=== PATIENT | male | born 1965 | race Caucasian/White ===

== ENCOUNTER 2016-12-23 09:24 | Inpatient (IN) | payer OTHER ==
[~2016-12-23] VITALS: Ht 172.7 cm; Wt 47.7 kg
[2016-12-23] MEDS ORDERED: SODIUM CHLORIDE 0.9% 1,000ML IVBOLUS ONE ×4 (10:00→23:00)
[2016-12-23 10:27] LABS: ABG COLLECTION SITE RIGHT BRACHIAL
[2016-12-23] MEDS ORDERED: PLEASE ENTER HEIGHT AND WEIGHT MC SCH (10:30)
[2016-12-23 10:32] LABS: ASPARTATE AMINO TRANSFERASE 28 U/L (15-37); BLOOD UREA NITROGEN 19 mg/dL (7-18)
[2016-12-23] MEDS ORDERED: ONDANSETRON 2MG/ML, 2ML ONE (10:44)
[2016-12-23] MEDS ORDERED: CEFTRIAXONE PMX 1GM/50ML 50 ML ONE (10:45)
[2016-12-23 10:56] LABS: DIFF TOTAL CELLS COUNTED 100 CELL DIFF
[2016-12-23 10:57] LABS: VERIFY COUNTS? YES
[2016-12-23] MEDS ORDERED: AZITHROMYCIN 500 MG in SODIUM CHLORIDE 0.9% 250 ML IV ONE (11:00)
[2016-12-23] MEDS ORDERED: ONDANSETRON 2MG/ML, 2ML IVPush ONE (11:00)
[2016-12-23] MEDS ORDERED: PIPERACILLIN/TAZO 3.375 GM in SODIUM CHLORIDE 0.9% 50 ML IV ONE (11:00)
[2016-12-23] MEDS ORDERED: CEFTRIAXONE PMX 1GM/50ML 50 ML IV ONE (11:00)
[2016-12-23] MEDS ORDERED: OMNIPAQUE 350 MG/ML, 75ML BOTTLE ONE (11:10)
[2016-12-23] MEDS ORDERED: SODIUM BICARBONATE 4.2%, 5ML ONE (11:10)
[2016-12-23] MEDS ORDERED: LIDOCAINE 1%, 20ML ONE (11:10)
[2016-12-23 11:48] LABS: CYTOLOGY BODY FLUID RECD INTO PATHOLOGY; CYTOLOGY BODY FLUID SOURCE THORACIC FLUID
[2016-12-23] MEDS ORDERED: METOCLOPRAMIDE 5 MG/ML, 2ML ONE (11:58)
[2016-12-23] MEDS ORDERED: METOCLOPRAMIDE 5 MG/ML, 2ML IVPush PRN (12:00)
[2016-12-23] MEDS ORDERED: ONDANSETRON 2MG/ML, 2ML IVPush PRN (12:30)
[2016-12-23] MEDS ORDERED: AZITHROMYCIN 500 MG in SODIUM CHLORIDE 0.9% 250 ML IV SCH (12:30)
[2016-12-23] MEDS ORDERED: LABETALOL 5MG/ML, 20ML IVPush PRN (12:30)
[2016-12-23] MEDS ORDERED: CEFTRIAXONE PMX 1GM/50ML 50 ML IV SCH (12:30)
[2016-12-23] MEDS ORDERED: POLYETHYLENE GLYCOL 17 GM PACKET PO PRN (12:30)
[2016-12-23] MEDS ORDERED: NS + 20MEQ KCL 1,000 ML IV ONE (12:40)
[2016-12-23] MEDS ORDERED: ENOXAPARIN 40 MG/0.4 ML ONE (12:40)
[2016-12-23] MEDS: ENOXAPARIN 40 MG/0.4 ML SQ SCH (12:46)
[2016-12-23] MEDS: NS + 20MEQ KCL 1,000 ML IV SCH ×3 (12:47→23:14)
[2016-12-23] MEDS ORDERED: LORazepam 1MG TABLET ONE (13:00)
[2016-12-23] MEDS: LORazepam 1MG TABLET PO PRN (13:01)
[2016-12-23 13:47] VITALS: BP 108/75
[2016-12-23] MEDS ORDERED: METO-93 PO (14:11)
[2016-12-23] MEDS ORDERED: MIRT15TA4 PO (14:11)
[2016-12-23] MEDS ORDERED: ELVI1TAB PO (14:11)
[2016-12-23] MEDS ORDERED: ALBUTEROL/IPRATROPIUM 2.5MG/0.5MG, 3 ML NPPB SCH (18:00)
[2016-12-23] MEDS ORDERED: FENTANYL PF 100 MCG/2ML ONE (19:30)
[2016-12-23] MEDS ORDERED: FENTANYL PF 100 MCG/2ML IV ONE (20:00)
[2016-12-23] MEDS ORDERED: PHARMACY MAY ADJ FOR RENAL FX MC SCH (20:30)
[2016-12-23] MEDS ORDERED: LACTULOSE 20 GM/30 ML UDC NG PRN (20:30)
[2016-12-23] MEDS ORDERED: ENOXAPARIN 40 MG/0.4 ML SQ SCH (20:30)
[2016-12-23] MEDS ORDERED: LIDOCAINE-MPF 1%, 2ML ENDO PRN (20:30)
[2016-12-23] MEDS ORDERED: BISACODYL 10 MG SUPP PR PRN (20:30)
[2016-12-23] MEDS ORDERED: SENNOSIDES 8.8 MG/5 ML ORAL SOL NG PRN (20:30)
[2016-12-23] MEDS ORDERED: SENNA/DOCUSATE TABLET NG PRN (20:30)
[2016-12-23] MEDS: NOREPINEPHRINE 4 MG in SODIUM CHLORIDE 0.9% 246 ML IV PRN ×2 (20:42→23:15)
[2016-12-23] MEDS: FENTANYL PF 100 MCG/2ML IVPush PRN ×2 (20:55→23:26)
[2016-12-23 20:56] LABS: COLLATERAL CIRCULATION TESTING NORMAL
[2016-12-23 20:57] LABS: ABG COLLECTION SITE LEFT RADIAL
[2016-12-23] MEDS ORDERED: FAMOTIDINE 20 MG TABLET PO SCH (21:00)
[2016-12-23] MEDS ORDERED: FAMOTIDINE 20 MG/2 ML IVPush SCH (21:00)
[2016-12-23 21:09] LABS: IS PT STATUS REG ER OR PRE ER? NO
[2016-12-23] MEDS: ALBUTEROL/IPRATROPIUM 2.5MG/0.5MG, 3 ML INLINE SCH (21:40)
[2016-12-23] MEDS: FAMOTIDINE 20 MG/2 ML IV SCH (23:18)
[2016-12-23] MEDS: PROPOFOL 100 ML IV PRN (23:25)
[2016-12-24] MEDS: ALBUTEROL/IPRATROPIUM 2.5MG/0.5MG, 3 ML INLINE SCH ×2 (02:10→06:00)
[2016-12-24] MEDS: FENTANYL PF 100 MCG/2ML IVPush PRN (02:29)
[2016-12-24 02:56] LABS: IS PT STATUS REG ER OR PRE ER? NO
[2016-12-24 04:32] LABS: ABG COLLECTION SITE RIGHT RADIAL; COLLATERAL CIRCULATION TESTING NORMAL
[2016-12-24] MEDS: PROPOFOL 100 ML IV PRN (04:41)
[2016-12-24 05:09] LABS: BLOOD UREA NITROGEN 9 mg/dL (7-18)
[2016-12-24 05:13] LABS: ASPARTATE AMINO TRANSFERASE 14 U/L (15-37)
[2016-12-24] MEDS: NOREPINEPHRINE 4 MG in SODIUM CHLORIDE 0.9% 246 ML IV PRN (05:23)
[2016-12-24] MEDS ORDERED: POTASSIUM CHLORIDE 10% 40 MEQ/30 ML UDC PO ONE (07:30)
[2016-12-24] MEDS ORDERED: MIDAZOLAM 1 MG/ML, 5ML ONE (08:00)
[2016-12-24] MEDS ORDERED: PROPOFOL 10 MG/ML, 100ML IV ONE (08:00)
[2016-12-24] MEDS ORDERED: SUCCINYLCHOLINE 20 MG/ML, 10ML ONE (08:00)
[2016-12-24] MEDS: SENNA/DOCUSATE TABLET PO SCH (09:00)
[2016-12-24] MEDS: FAMOTIDINE 20 MG/2 ML IV SCH ×2 (09:55→21:12)
[2016-12-24] MEDS: CEFTRIAXONE PMX 1GM/50ML 50 ML IV SCH (09:55)
[2016-12-24] MEDS: [UNRECOGNIZED DRUG - OTHER] PO SCH ×2 (10:00→15:41)
[2016-12-24] MEDS: ALBUTEROL/IPRATROPIUM 2.5MG/0.5MG, 3 ML NPPB SCH ×3 (11:30→20:30)
[2016-12-24] MEDS ORDERED: ALBUTEROL/IPRATROPIUM 2.5MG/0.5MG, 3 ML NPPB PRN (11:30)
[2016-12-24] MEDS: AZITHROMYCIN 500 MG in SODIUM CHLORIDE 0.9% 250 ML IV SCH (11:38)
[2016-12-24] MEDS: MIRTAZAPINE 15 MG TABLET PO SCH (11:38)
[2016-12-24] MEDS: LORazepam 1MG TABLET PO PRN (12:29)
[2016-12-24] MEDS: ACETAMINOPHEN 325 MG TABLET PO PRN ×2 (12:30→23:46)
[2016-12-24] MEDS: ENOXAPARIN 40 MG/0.4 ML SQ SCH (12:33)
[2016-12-25] MEDS: NS + 20MEQ KCL 1,000 ML IV SCH ×2 (01:32→12:46)
[2016-12-25 04:29] LABS: ABG COLLECTION SITE LEFT RADIAL; COLLATERAL CIRCULATION TESTING NORMAL
[2016-12-25 05:10] LABS: BLOOD UREA NITROGEN 3 mg/dL (7-18)
[2016-12-25] MEDS: [UNRECOGNIZED DRUG - OTHER] PO SCH (07:30)
[2016-12-25] MEDS: ALBUTEROL/IPRATROPIUM 2.5MG/0.5MG, 3 ML NPPB SCH ×4 (07:55→21:41)
[2016-12-25] MEDS ORDERED: POTASSIUM CHLORIDE 20 MEQ TAB.ER.PRT PO ONE (08:30)
[2016-12-25] MEDS: SENNA/DOCUSATE TABLET PO SCH (08:50)
[2016-12-25] MEDS: FAMOTIDINE 20 MG/2 ML IV SCH ×2 (08:50→20:32)
[2016-12-25] MEDS: MIRTAZAPINE 15 MG TABLET PO SCH (08:50)
[2016-12-25] MEDS: LORazepam 1MG TABLET PO PRN ×2 (08:50→20:31)
[2016-12-25] MEDS: CEFTRIAXONE PMX 1GM/50ML 50 ML IV SCH (10:02)
[2016-12-25] MEDS: OXYcodone IR 5MG TABLET PO PRN ×3 (10:03→17:53)
[2016-12-25] MEDS: AZITHROMYCIN 500 MG in SODIUM CHLORIDE 0.9% 250 ML IV SCH (12:37)
[2016-12-25] MEDS: ENOXAPARIN 40 MG/0.4 ML SQ SCH (12:41)
[2016-12-25] MEDS: [UNRECOGNIZED DRUG - OTHER] HOMEMEDPO SCH (17:54)
[2016-12-25] MEDS: TEMAZEPAM 15 MG CAPSULE PO PRN (21:52)
[2016-12-25 22:06] LABS: ABSOLUTE CD 4 HELPER 295 /uL (359-1519); HEMATOCRIT 37.2 % (37.5-51.0); HEMOGLOBIN 13.1 g/dL (12.6-17.7); IMMATURE GRANULOCYTES 0 % (.); MCH 30.8 pg (26.6-33.0); MCHC 35.2 g/dL (31.5-35.7); MCV 87 fL (79-97); MONOCYTES 3 % (.); NEUTROPHILS 92 % (.); PLATELETS 289 x10E3/uL (150-379); RBC 4.26 x10E6/uL (4.14-5.80); RDW 13.2 % (12.3-15.4); WBC 12.6 x10E3/uL (3.4-10.8)
[2016-12-26 04:22] LABS: ABG COLLECTION SITE RIGHT RADIAL
[2016-12-26 04:23] LABS: COLLATERAL CIRCULATION TESTING NORMAL
[2016-12-26 05:57] LABS: BLOOD UREA NITROGEN 3 mg/dL (7-18)
[2016-12-26] MEDS: ALBUTEROL/IPRATROPIUM 2.5MG/0.5MG, 3 ML NPPB SCH ×4 (07:00→20:00)
[2016-12-26] MEDS: SENNA/DOCUSATE TABLET PO SCH (09:00)
[2016-12-26] MEDS: FAMOTIDINE 20 MG/2 ML IV SCH ×2 (09:00→21:00)
[2016-12-26] MEDS: POTASSIUM CHLORIDE 20 MEQ TAB.ER.PRT PO SCH ×2 (09:01→18:42)
[2016-12-26] MEDS: LORazepam 1MG TABLET PO PRN (09:03)
[2016-12-26] MEDS: MIRTAZAPINE 15 MG TABLET PO SCH (09:03)
[2016-12-26] MEDS: CEFTRIAXONE PMX 1GM/50ML 50 ML IV SCH (10:15)
[2016-12-26] MEDS: ENOXAPARIN 40 MG/0.4 ML SQ SCH (12:40)
[2016-12-26] MEDS: AZITHROMYCIN 500 MG in SODIUM CHLORIDE 0.9% 250 ML IV SCH (12:40)
[2016-12-26 13:06] LABS: LOG10 HIV-1 RNA 1.301 (.)
[2016-12-26] MEDS: [UNRECOGNIZED DRUG - OTHER] HOMEMEDPO SCH (16:30)
[2016-12-26] MEDS: TEMAZEPAM 15 MG CAPSULE PO PRN (21:00)
[2016-12-26] MEDS: OXYcodone IR 5MG TABLET PO PRN (21:01)
[2016-12-27 04:44] LABS: ABG COLLECTION SITE RIGHT RADIAL; COLLATERAL CIRCULATION TESTING NORMAL
[2016-12-27 06:54] LABS: ASPARTATE AMINO TRANSFERASE 21 U/L (15-37); BLOOD UREA NITROGEN 6 mg/dL (7-18)
[2016-12-27] MEDS: SENNA/DOCUSATE TABLET PO SCH (07:07)
[2016-12-27] MEDS: POTASSIUM CHLORIDE 20 MEQ TAB.ER.PRT PO SCH (07:07)
[2016-12-27] MEDS: MIRTAZAPINE 15 MG TABLET PO SCH (07:07)
[2016-12-27] MEDS: LORazepam 1MG TABLET PO PRN ×2 (07:07→14:31)
[2016-12-27] MEDS: FAMOTIDINE 20 MG/2 ML IV SCH ×2 (07:07→19:43)
[2016-12-27] MEDS: ALBUTEROL/IPRATROPIUM 2.5MG/0.5MG, 3 ML NPPB SCH ×4 (08:00→20:11)
[2016-12-27] MEDS: OXYcodone IR 5MG TABLET PO PRN ×2 (08:18→19:43)
[2016-12-27] MEDS: CEFTRIAXONE PMX 1GM/50ML 50 ML IV SCH (11:03)
[2016-12-27] MEDS: AZITHROMYCIN 500 MG in SODIUM CHLORIDE 0.9% 250 ML IV SCH (11:57)
[2016-12-27] MEDS: ENOXAPARIN 40 MG/0.4 ML SQ SCH (12:42)
[2016-12-27 13:05] VITALS: BP 109/75
[2016-12-27] MEDS: [UNRECOGNIZED DRUG - OTHER] HOMEMEDPO SCH (16:30)
[2016-12-27 18:59] VITALS: BP 116/71
[2016-12-27] MEDS: TEMAZEPAM 15 MG CAPSULE PO PRN (20:33)
[2016-12-28 02:38] VITALS: BP 102/74
[2016-12-28] MEDS: OXYcodone IR 5MG TABLET PO PRN ×4 (02:38→22:28)
[2016-12-28 06:25] LABS: ASPARTATE AMINO TRANSFERASE 14 U/L (15-37); BLOOD UREA NITROGEN 5 mg/dL (7-18)
[2016-12-28] MEDS: ALBUTEROL/IPRATROPIUM 2.5MG/0.5MG, 3 ML NPPB SCH ×5 (07:45→20:44)
[2016-12-28] MEDS: LORazepam 1MG TABLET PO PRN ×2 (08:58→19:36)
[2016-12-28] MEDS: FAMOTIDINE 20 MG/2 ML IV SCH (08:58)
[2016-12-28] MEDS: MIRTAZAPINE 15 MG TABLET PO SCH (08:58)
[2016-12-28] MEDS: SENNA/DOCUSATE TABLET PO SCH (08:58)
[2016-12-28 09:44] VITALS: BP 119/76
[2016-12-28] MEDS: CEFTRIAXONE PMX 1GM/50ML 50 ML IV SCH (10:43)
[2016-12-28] MEDS: AZITHROMYCIN 500 MG in SODIUM CHLORIDE 0.9% 250 ML IV SCH (11:38)
[2016-12-28] MEDS: ENOXAPARIN 40 MG/0.4 ML SQ SCH (13:29)
[2016-12-28 15:00] VITALS: BP 111/71
[2016-12-28] MEDS: [UNRECOGNIZED DRUG - OTHER] HOMEMEDPO SCH (16:25)
[2016-12-28 20:00] VITALS: BP 108/72
[2016-12-28] MEDS: TEMAZEPAM 15 MG CAPSULE PO PRN (22:28)
[2016-12-29 02:14] VITALS: BP 103/68
[2016-12-29] MEDS: OXYcodone IR 5MG TABLET PO PRN ×4 (02:20→21:01)
[2016-12-29 05:28] LABS: BLOOD UREA NITROGEN 5 mg/dL (7-18)
[2016-12-29 06:50] VITALS: BP 103/66
[2016-12-29] MEDS: MIRTAZAPINE 15 MG TABLET PO SCH (07:51)
[2016-12-29] MEDS: SENNA/DOCUSATE TABLET PO SCH (07:51)
[2016-12-29] MEDS: LORazepam 1MG TABLET PO PRN ×2 (08:18→15:52)
[2016-12-29] MEDS: ALBUTEROL/IPRATROPIUM 2.5MG/0.5MG, 3 ML NPPB SCH ×4 (10:02→19:28)
[2016-12-29] MEDS: CEFTRIAXONE PMX 1GM/50ML 50 ML IV SCH (10:46)
[2016-12-29] MEDS: AZITHROMYCIN 500 MG in SODIUM CHLORIDE 0.9% 250 ML IV SCH (12:10)
[2016-12-29 14:42] VITALS: BP 107/74
[2016-12-29] MEDS: ENOXAPARIN 40 MG/0.4 ML SQ SCH (15:17)
[2016-12-29] MEDS: [UNRECOGNIZED DRUG - OTHER] HOMEMEDPO SCH (16:30)
[2016-12-29 20:06] LABS: ADENOVIRUS PCR Negative (Negative); INFLUENZA A PCR Negative (Negative); INFLUENZA B PCR Negative (Negative); METAPNEUMOVIRUS PCR Negative (Negative); PARAINFLUENZA 1 PCR Negative (Negative); PARAINFLUENZA 2 PCR Negative (Negative); PARAINFLUENZA 3 PCR Negative (Negative); RESP SYNCYTIAL VIRUS A PCR Negative (Negative); RESP SYNCYTIAL VIRUS B PCR Negative (Negative); RHINOVIRUS PCR Negative (Negative)
[2016-12-29 20:51] VITALS: BP 111/77
[2016-12-29] MEDS: TEMAZEPAM 15 MG CAPSULE PO PRN (20:57)
[2016-12-30 02:40] VITALS: BP 98/62
[2016-12-30 05:00] LABS: BLOOD UREA NITROGEN 5 mg/dL (7-18)
[2016-12-30] MEDS: OXYcodone IR 5MG TABLET PO PRN ×3 (05:20→20:24)
[2016-12-30] MEDS: ALBUTEROL/IPRATROPIUM 2.5MG/0.5MG, 3 ML NPPB SCH ×4 (07:00→21:20)
[2016-12-30 07:33] VITALS: BP 106/71
[2016-12-30] MEDS: MIRTAZAPINE 15 MG TABLET PO SCH (07:42)
[2016-12-30] MEDS: SENNA/DOCUSATE TABLET PO SCH (07:42)
[2016-12-30] MEDS: CEFTRIAXONE PMX 1GM/50ML 50 ML IV SCH (10:21)
[2016-12-30] MEDS: AZITHROMYCIN 500 MG in SODIUM CHLORIDE 0.9% 250 ML IV SCH (12:13)
[2016-12-30] MEDS: ENOXAPARIN 40 MG/0.4 ML SQ SCH (12:28)
[2016-12-30 13:53] VITALS: BP 101/68
[2016-12-30] MEDS: [UNRECOGNIZED DRUG - OTHER] HOMEMEDPO SCH (16:30)
[2016-12-30] MEDS: LORazepam 1MG TABLET PO PRN (17:45)
[2016-12-30 20:19] VITALS: BP 109/72
[2016-12-30] MEDS: TEMAZEPAM 15 MG CAPSULE PO PRN (20:24)
[2016-12-30] MEDS: CALCIUM CARBONATE 500 MG TAB.CHEW PO PRN (23:03)
[2016-12-31 02:48] VITALS: BP 110/71
[2016-12-31 03:07] LABS: ADENOVIRUS PCR Negative (Negative); INFLUENZA A PCR Negative (Negative); INFLUENZA B PCR Negative (Negative); METAPNEUMOVIRUS PCR Negative (Negative); PARAINFLUENZA 1 PCR Negative (Negative); PARAINFLUENZA 2 PCR Negative (Negative); PARAINFLUENZA 3 PCR Negative (Negative); RESP SYNCYTIAL VIRUS A PCR Negative (Negative); RESP SYNCYTIAL VIRUS B PCR Negative (Negative); RHINOVIRUS PCR Negative (Negative)
[2016-12-31] MEDS: OXYcodone IR 5MG TABLET PO PRN ×4 (06:36→22:37)
[2016-12-31 06:42] VITALS: BP 109/75
[2016-12-31] MEDS: ALBUTEROL/IPRATROPIUM 2.5MG/0.5MG, 3 ML NPPB SCH ×4 (07:05→20:27)
[2016-12-31 07:35] LABS: ABG COLLECTION SITE RIGHT RADIAL; COLLATERAL CIRCULATION TESTING NORMAL
[2016-12-31 07:45] LABS: BLOOD UREA NITROGEN 4 mg/dL (7-18)
[2016-12-31] MEDS: ENOXAPARIN 40 MG/0.4 ML SQ SCH (08:19)
[2016-12-31] MEDS: SENNA/DOCUSATE TABLET PO SCH (08:39)
[2016-12-31] MEDS: MIRTAZAPINE 15 MG TABLET PO SCH (08:39)
[2016-12-31] MEDS: CEFTRIAXONE PMX 1GM/50ML 50 ML IV SCH (10:48)
[2016-12-31] MEDS: AZITHROMYCIN 500 MG in SODIUM CHLORIDE 0.9% 250 ML IV SCH (12:41)
[2016-12-31 14:25] VITALS: BP 103/70
[2016-12-31] MEDS: [UNRECOGNIZED DRUG - OTHER] HOMEMEDPO SCH (16:30)
[2016-12-31] MEDS: LORazepam 1MG TABLET PO PRN (16:51)
[2016-12-31 21:08] VITALS: BP 118/80
[2016-12-31] MEDS: TEMAZEPAM 15 MG CAPSULE PO PRN (22:37)
[2017-01-01 02:20] VITALS: BP 108/72
[2017-01-01] MEDS: LORazepam 1MG TABLET PO PRN ×4 (03:36→19:13)
[2017-01-01] MEDS: OXYcodone IR 5MG TABLET PO PRN ×6 (05:11→23:08)
[2017-01-01 06:27] LABS: BLOOD UREA NITROGEN 3 mg/dL (7-18)
[2017-01-01] MEDS: ALBUTEROL/IPRATROPIUM 2.5MG/0.5MG, 3 ML NPPB SCH ×4 (07:00→20:53)
[2017-01-01 07:23] VITALS: BP 111/74
[2017-01-01] MEDS: MIRTAZAPINE 15 MG TABLET PO SCH (08:48)
[2017-01-01] MEDS: SENNA/DOCUSATE TABLET PO SCH (08:48)
[2017-01-01] MEDS: CEFTRIAXONE PMX 1GM/50ML 50 ML IV SCH (09:23)
[2017-01-01] MEDS: METOPROLOL SUCCINATE 25 MG TAB.ER.24H PO SCH (12:36)
[2017-01-01] MEDS: AZITHROMYCIN 500 MG in SODIUM CHLORIDE 0.9% 250 ML IV SCH (12:36)
[2017-01-01] MEDS: ENOXAPARIN 40 MG/0.4 ML SQ SCH (12:40)
[2017-01-01 12:41] VITALS: BP 120/84
[2017-01-01 13:06] VITALS: BP 138/87
[2017-01-01] MEDS: [UNRECOGNIZED DRUG - OTHER] HOMEMEDPO SCH (17:21)
[2017-01-01 19:30] VITALS: BP 113/75
[2017-01-01] MEDS: TEMAZEPAM 15 MG CAPSULE PO PRN (23:35)
[2017-01-02 03:55] VITALS: BP 99/68
[2017-01-02] MEDS: OXYcodone IR 5MG TABLET PO PRN ×5 (04:29→18:00)
[2017-01-02] MEDS: LORazepam 1MG TABLET PO PRN ×3 (04:30→15:17)
[2017-01-02 06:04] LABS: BLOOD UREA NITROGEN 4 mg/dL (7-18)
[2017-01-02] MEDS: ALBUTEROL/IPRATROPIUM 2.5MG/0.5MG, 3 ML NPPB SCH ×2 (08:52→20:49)
[2017-01-02 09:50] VITALS: BP 99/65
[2017-01-02] MEDS: SENNA/DOCUSATE TABLET PO SCH ×2 (10:04→10:07)
[2017-01-02] MEDS: CEFTRIAXONE PMX 1GM/50ML 50 ML IV SCH (10:04)
[2017-01-02] MEDS: MIRTAZAPINE 15 MG TABLET PO SCH (10:05)
[2017-01-02] MEDS ORDERED: SODIUM CHLORIDE 0.9%, 250ML IVBOLUS ONE (13:00)
[2017-01-02 13:10] VITALS: BP 113/76
[2017-01-02] MEDS: AZITHROMYCIN 500 MG in SODIUM CHLORIDE 0.9% 250 ML IV SCH (13:11)
[2017-01-02] MEDS: METOPROLOL SUCCINATE 25 MG TAB.ER.24H PO SCH (13:12)
[2017-01-02 14:50] VITALS: BP 103/69
[2017-01-02] MEDS: ENOXAPARIN 40 MG/0.4 ML SQ SCH (15:05)
[2017-01-02 16:59] LABS: BLOOD UREA NITROGEN 3 mg/dL (7-18)
[2017-01-02] MEDS: [UNRECOGNIZED DRUG - OTHER] HOMEMEDPO SCH (17:54)
[2017-01-02 18:58] VITALS: BP 107/73
[2017-01-02] MEDS ORDERED: POTASSIUM CHLORIDE 20 MEQ TAB.ER.PRT PO ONE ×2 (20:00→22:00)
[2017-01-03 00:45] VITALS: BP 113/75
[2017-01-03] MEDS: LORazepam 1MG TABLET PO PRN ×4 (01:09→18:57)
[2017-01-03] MEDS: OXYcodone IR 5MG TABLET PO PRN ×6 (01:09→21:23)
[2017-01-03 05:22] LABS: ASPARTATE AMINO TRANSFERASE 26 U/L (15-37); BLOOD UREA NITROGEN 2 mg/dL (7-18)
[2017-01-03] MEDS: ALBUTEROL/IPRATROPIUM 2.5MG/0.5MG, 3 ML NPPB SCH ×2 (06:48→21:28)
[2017-01-03 07:06] VITALS: BP 117/79
[2017-01-03] MEDS: SENNA/DOCUSATE TABLET PO SCH (07:40)
[2017-01-03] MEDS ORDERED: CEFTRIAXONE 1,000 MG in SODIUM CHLORIDE 0.9% 50 ML IVPB SCH (10:30)
[2017-01-03] MEDS: MIRTAZAPINE 15 MG TABLET PO SCH (10:55)
[2017-01-03] MEDS ORDERED: FUROSEMIDE 20 MG/2 ML IV ONE (11:30)
[2017-01-03] MEDS: CEFDINIR 300 MG CAPSULE PO SCH ×2 (11:55→19:43)
[2017-01-03 14:18] VITALS: BP 106/67
[2017-01-03] MEDS: METOPROLOL SUCCINATE 25 MG TAB.ER.24H PO SCH (15:01)
[2017-01-03] MEDS: ENOXAPARIN 40 MG/0.4 ML SQ SCH (15:01)
[2017-01-03] MEDS: [UNRECOGNIZED DRUG - OTHER] HOMEMEDPO SCH (17:30)
[2017-01-03] MEDS ORDERED: SODIUM CHLORIDE 0.9%, 250ML IVBOLUS ONE (18:00)
[2017-01-03 19:41] VITALS: BP 112/78
[2017-01-04 01:58] VITALS: BP 102/68
[2017-01-04] MEDS: OXYcodone IR 5MG TABLET PO PRN ×4 (04:30→19:53)
[2017-01-04 06:07] LABS: BLOOD UREA NITROGEN 3 mg/dL (7-18)
[2017-01-04 06:10] LABS: BLOOD UREA NITROGEN 3 mg/dL (7-18)
[2017-01-04 07:13] VITALS: BP 105/71
[2017-01-04] MEDS: ALBUTEROL/IPRATROPIUM 2.5MG/0.5MG, 3 ML NPPB SCH ×2 (08:00→19:35)
[2017-01-04] MEDS: MIRTAZAPINE 15 MG TABLET PO SCH (08:44)
[2017-01-04] MEDS: METOPROLOL SUCCINATE 25 MG TAB.ER.24H PO SCH (08:44)
[2017-01-04] MEDS: SENNA/DOCUSATE TABLET PO SCH (08:44)
[2017-01-04] MEDS: LORazepam 1MG TABLET PO PRN (08:44)
[2017-01-04] MEDS: CEFDINIR 300 MG CAPSULE PO SCH ×2 (08:44→20:53)
[2017-01-04] MEDS ORDERED: POTASSIUM CHLORIDE 20 MEQ TAB.ER.PRT PO ONE ×2 (10:30→17:00)
[2017-01-04] MEDS ORDERED: FUROSEMIDE 20 MG/2 ML IV ONE (10:30)
[2017-01-04] MEDS: ENOXAPARIN 40 MG/0.4 ML SQ SCH (11:37)
[2017-01-04 13:59] VITALS: BP 124/71
[2017-01-04] MEDS ORDERED: SODIUM CHLORIDE 0.9%, 250ML IVBOLUS ONE (16:30)
[2017-01-04] MEDS: [UNRECOGNIZED DRUG - OTHER] HOMEMEDPO SCH (16:56)
[2017-01-04] MEDS: ACETAMINOPHEN 325 MG TABLET PO PRN (17:10)
[2017-01-04 19:47] VITALS: BP 115/77
[2017-01-04] MEDS: TEMAZEPAM 15 MG CAPSULE PO PRN (22:49)
[2017-01-05] MEDS: TEMAZEPAM 15 MG CAPSULE PO PRN (02:43)
[2017-01-05 02:47] VITALS: BP 114/76
[2017-01-05 04:57] LABS: BLOOD UREA NITROGEN 5 mg/dL (7-18)
[2017-01-05] MEDS: METOPROLOL SUCCINATE 25 MG TAB.ER.24H PO SCH (05:36)
[2017-01-05] MEDS: CALCIUM CARBONATE 500 MG TAB.CHEW PO PRN (05:36)
[2017-01-05 06:43] VITALS: BP 103/69
[2017-01-05] MEDS: ALBUTEROL/IPRATROPIUM 2.5MG/0.5MG, 3 ML NPPB SCH ×2 (07:35→19:20)
[2017-01-05] MEDS: MIRTAZAPINE 15 MG TABLET PO SCH (08:43)
[2017-01-05] MEDS: CEFDINIR 300 MG CAPSULE PO SCH ×2 (08:43→21:15)
[2017-01-05] MEDS: OXYcodone IR 5MG TABLET PO PRN ×3 (08:43→17:19)
[2017-01-05] MEDS: SENNA/DOCUSATE TABLET PO SCH (08:43)
[2017-01-05] MEDS ORDERED: PANTOPRAZOLE 40 MG IV IVPush ONE (09:30)
[2017-01-05] MEDS ORDERED: MAALOX/HYOSCYAMINE/LIDOCAINE 45 ML BOTTLE PO ONE (09:30)
[2017-01-05] MEDS: ENOXAPARIN 40 MG/0.4 ML SQ SCH (13:05)
[2017-01-05 14:06] VITALS: BP 117/71
[2017-01-05] MEDS: [UNRECOGNIZED DRUG - OTHER] HOMEMEDPO SCH (16:30)
[2017-01-05 20:32] VITALS: BP 126/85
[2017-01-05] MEDS: LORazepam 1MG TABLET PO PRN (21:15)
[2017-01-05] MEDS: BISACODYL 10 MG SUPP PR SCH (22:06)
[2017-01-06 02:26] VITALS: BP 107/69
[2017-01-06 05:51] LABS: BLOOD UREA NITROGEN 5 mg/dL (7-18)
[2017-01-06 06:20] VITALS: BP 113/73
[2017-01-06] MEDS: METOPROLOL SUCCINATE 25 MG TAB.ER.24H PO SCH (06:24)
[2017-01-06] MEDS: ALBUTEROL/IPRATROPIUM 2.5MG/0.5MG, 3 ML NPPB SCH (07:40)
[2017-01-06] MEDS: BISACODYL 10 MG SUPP PR SCH (09:00)
[2017-01-06] MEDS: SENNA/DOCUSATE TABLET PO SCH (09:00)
[2017-01-06] MEDS: CEFDINIR 300 MG CAPSULE PO SCH (09:27)
[2017-01-06] MEDS: CALCIUM CARBONATE 500 MG TAB.CHEW PO PRN (11:07)
[2017-01-06] MEDS: ENOXAPARIN 40 MG/0.4 ML SQ SCH (12:58)
[2017-01-06 14:18] VITALS: BP 119/78
[2017-01-06] MEDS ORDERED: LACT20SO13 NG (14:18)
[2017-01-06] MEDS ORDERED: OXYC5TAB3 PO (14:18)
== END 2017-01-06 17:53 | disposition home health service (06) | DRG 853 ==
LOC: ED 09:56 → EDIP 11:40 → CCU 13:25 → 5SO 12-27 12:32
PROVIDERS: ADMIT Internal Medicine; ATTEND Internal Medicine
PROC: 0W9930Z Drainage of Right Pleural Cavity with Drainage Device, Percutaneous Approach (ICD-10-PCS; principal; 2016-12-23)
PROC: 0B9D8ZX Drainage of Right Middle Lung Lobe, Via Natural or Artificial Opening Endoscopic, Diagnostic (ICD-10-PCS; 2016-12-23)
PROC: 5A1935Z Respiratory Ventilation, Less than 24 Consecutive Hours (ICD-10-PCS; 2016-12-23)
PROC: 0W993ZZ Drainage of Right Pleural Cavity, Percutaneous Approach (ICD-10-PCS; 2016-12-23)
PROC: 0B9H8ZX Drainage of Lung Lingula, Via Natural or Artificial Opening Endoscopic, Diagnostic (ICD-10-PCS; 2016-12-23)
PROC: 0BH18EZ Insertion of Endotracheal Airway into Trachea, Via Natural or Artificial Opening Endoscopic (ICD-10-PCS; 2016-12-23)
PROC: 02HV33Z Insertion of Infusion Device into Superior Vena Cava, Percutaneous Approach (ICD-10-PCS; 2016-12-23)
DX: A41.9 Sepsis, unspecified organism (principal); J96.00 Acute respiratory failure, unspecified whether with hypoxia or hypercapnia; J18.9 Pneumonia, unspecified organism; E43 Unspecified severe protein-calorie malnutrition; J93.9 Pneumothorax, unspecified; E87.1 Hypo-osmolality and hyponatremia; J90 Pleural effusion, not elsewhere classified; M48.54XA Collapsed vertebra, not elsewhere classified, thoracic region, initial encounter for fracture; Z68.1 Body mass index [BMI] 19.9 or less, adult; K56.7 Ileus, unspecified; Z87.891 Personal history of nicotine dependence; I10 Essential (primary) hypertension; Z82.3 Family history of stroke; E87.6 Hypokalemia; R73.9 Hyperglycemia, unspecified; E86.0 Dehydration; J43.2 Centrilobular emphysema; I45.10 Unspecified right bundle-branch block; D75.89 Other specified diseases of blood and blood-forming organs; I27.2 Other secondary pulmonary hypertension; E87.5 Hyperkalemia; E16.2 Hypoglycemia, unspecified; K76.0 Fatty (change of) liver, not elsewhere classified
CPT/HCPCS: 31624; 32555; 36415; 36600; 71010; 71260; 74000; 74177; 76700; 80048; 80053; 82040; 82042; 82803; 82945; 83605; 83615; 83690; 83735; 83880; 83986; 84100; 84145; 84157; 84478; 84484; 85025; 86361; 87015; 87040; 87070; 87075; 87081; 87102; 87116; 87205; 87206; 87252; 87254; 87536; 87633; 88108; 88112; 88305; 88312; 89051; 93005; 93306; 94002; 94003; 94640; 96361; 96365; 96367; 96368; 96375; J0456; J0696; J1650; J2250; J2405; J2543; J2704; J3010; J3480; J3490; J7620; Q9967; C9113; J0330; J1940; J2765; J7030; J7050; S0028

== ENCOUNTER 2017-02-02 10:19 | Emergency (ER) | payer OTHER ==
[~2017-02-02] VITALS: Ht 172.7 cm; Wt 51.1 kg
[~2017-02-02 10:19] MED LIST: ELVI1TAB PO; LACT20SO13 NG; METO-93 PO; MIRT15TA4 PO; OXYC5TAB3 PO
[2017-02-02] MEDS ORDERED: DRON5CAP PO (10:50)
[2017-02-02] MEDS ORDERED: PANT20TA3 PO (10:50)
[2017-02-02] MEDS ORDERED: IBUP-1222 PO (11:00)
[2017-02-02] MEDS ORDERED: [UNRECOGNIZED DRUG - REMARK] (11:01)
[2017-02-02] MEDS ORDERED: UNKNOWN ANTIBIOTIC (11:01)
[2017-02-02 13:20] VITALS: BP 106/75
== END 2017-02-02 13:51 | disposition home or self-care (01) ==
LOC: ED 11:47
DX: B20 Human immunodeficiency virus [HIV] disease (principal); J90 Pleural effusion, not elsewhere classified; I10 Essential (primary) hypertension; Z87.01 Personal history of pneumonia (recurrent); Z87.891 Personal history of nicotine dependence
CPT/HCPCS: 71020; 93005; 99284

== ENCOUNTER 2017-02-12 13:16 | Inpatient (IN) | payer OTHER ==
[~2017-02-12] VITALS: Ht 172.7 cm; Wt 62.0 kg
[~2017-02-12 13:16] MED LIST changes: +DRON5CAP PO; +IBUP-1222 PO; +PANT20TA3 PO; +UNKNOWN ANTIBIOTIC; +[UNRECOGNIZED DRUG - REMARK]
[2017-02-12] MEDS ORDERED: DOXY150T PO (14:05)
[2017-02-12] MEDS ORDERED: POLY17PO5 PO (14:06)
[2017-02-12] MEDS ORDERED: LACT1CAP43 PO (14:08)
[2017-02-12] MEDS ORDERED: ONDA4TAB7 PO (14:09)
[2017-02-12] MEDS ORDERED: SODIUM CHLORIDE 0.9% 1,000ML IVBOLUS ONE (14:30)
[2017-02-12] MEDS ORDERED: SODIUM CHLORIDE FLUSH 10ML SYR IVF ONE (14:30)
[2017-02-12 14:48] LABS: BLOOD UREA NITROGEN 9 mg/dL (7-18)
[2017-02-12 14:51] LABS: ASPARTATE AMINO TRANSFERASE 15 U/L (15-37)
[2017-02-12] MEDS ORDERED: OMNIPAQUE 350 MG/ML, 75ML BOTTLE ONE (16:18)
[2017-02-12] MEDS ORDERED: VANCOMYCIN PER PHARMACY IV ONE (17:30)
[2017-02-12] MEDS ORDERED: PIPERACILLIN/TAZO/PMX 3.375GM 50 ML IVPB ONE (17:30)
[2017-02-12] MEDS ORDERED: PHARMACOKINETIC CONSULTATION MC ONE ×2 (17:30→21:30)
[2017-02-12] MEDS ORDERED: VANCOMYCIN PMX 1GM/200ML 200 ML IV ONE (17:30)
[2017-02-12] MEDS ORDERED: VANCOMYCIN PER PHARMACY MC PRN (18:00)
[2017-02-12] MEDS ORDERED: BISACODYL 10 MG SUPP PR PRN (18:30)
[2017-02-12] MEDS: [UNRECOGNIZED DRUG - OTHER] PO SCH (18:30)
[2017-02-12] MEDS ORDERED: ONDANSETRON 4 MG TABLET PO PRN ×2 (18:30→20:53)
[2017-02-12] MEDS ORDERED: OXYcodone IR 5MG TABLET ONE (18:45)
[2017-02-12] MEDS: OXYcodone IR 5MG TABLET PO PRN ×2 (18:50→23:41)
[2017-02-12] MEDS: PIPERACILLIN/TAZO/PMX 4.5GM 100 ML IV SCH (19:22)
[2017-02-12] MEDS ORDERED: ALBUTEROL/IPRATROPIUM 2.5MG/0.5MG, 3 ML NPPB PRN (19:30)
[2017-02-12 21:00] VITALS: BP 132/79
[2017-02-12] MEDS ORDERED: PHARMACOKINETIC MONITORING MC PRN (21:30)
[2017-02-12 22:49] LABS: BLOOD UREA NITROGEN 6 mg/dL (7-18)
[2017-02-12] MEDS: LACTULOSE 10 GM/15 ML UDC PO SCH (23:10)
[2017-02-12] MEDS: NS + 20MEQ KCL 1,000 ML IV SCH (23:10)
[2017-02-13] MEDS: PIPERACILLIN/TAZO/PMX 4.5GM 100 ML IV SCH ×4 (01:45→20:00)
[2017-02-13 02:22] VITALS: BP 93/63
[2017-02-13] MEDS: ONDANSETRON 2MG/ML, 2ML IVPush PRN (04:14)
[2017-02-13] MEDS: VANCOMYCIN PMX 1GM/200ML 200 ML IVPB SCH ×2 (04:14→17:00)
[2017-02-13] MEDS: OXYcodone IR 5MG TABLET PO PRN ×3 (04:27→18:56)
[2017-02-13 05:24] LABS: ASPARTATE AMINO TRANSFERASE 13 U/L (15-37); BLOOD UREA NITROGEN 6 mg/dL (7-18)
[2017-02-13 07:23] VITALS: BP 99/64
[2017-02-13] MEDS: [UNRECOGNIZED DRUG - OTHER] PO SCH ×2 (08:00→20:00)
[2017-02-13] MEDS: PANTOPRAZOLE 40 MG IV IVPush SCH (08:50)
[2017-02-13] MEDS: LACTULOSE 10 GM/15 ML UDC PO SCH ×2 (08:50→21:00)
[2017-02-13] MEDS: LACTOBACILLUS CHEW TABLET PO SCH (08:51)
[2017-02-13] MEDS: SENNA/DOCUSATE TABLET PO SCH (08:51)
[2017-02-13] MEDS: DRONABINOL 5 MG CAPSULE PO SCH (08:52)
[2017-02-13] MEDS: MIRTAZAPINE 15 MG TABLET PO SCH (08:52)
[2017-02-13] MEDS ORDERED: METOPROLOL SUCCINATE 50 MG TAB.ER.24H PO SCH (09:00)
[2017-02-13] MEDS ORDERED: MAGNESIUM SULFATE PMX 2GM/50ML 50 ML IV ONE (09:00)
[2017-02-13] MEDS ORDERED: LIDOCAINE 2%, 20ML ONE (10:15)
[2017-02-13] MEDS: NS + 20MEQ KCL 1,000 ML IV SCH ×2 (11:00→15:43)
[2017-02-13 11:16] LABS: CYTOLOGY BODY FLUID RECD INTO PATHOLOGY; CYTOLOGY BODY FLUID SOURCE THORACIC FLUID
[2017-02-13] MEDS: FLUTICASONE/VILANTEROL 100-25MCG/INH INH SCH (12:06)
[2017-02-13 12:33] VITALS: BP 110/76
[2017-02-13] MEDS ORDERED: BISACODYL 10 MG SUPP PR ONE (14:30)
[2017-02-13 18:54] VITALS: BP 112/78
[2017-02-13] MEDS ORDERED: METOPROLOL SUCCINATE 50 MG TAB.ER.24H PO ONE (21:00)
[2017-02-13] MEDS: POTASSIUM CHLORIDE 20 MEQ TAB.ER.PRT PO SCH (21:12)
[2017-02-14] MEDS: ONDANSETRON 2MG/ML, 2ML IVPush PRN (04:24)
[2017-02-14 04:25] VITALS: BP 111/77
[2017-02-14] MEDS: OXYcodone IR 5MG TABLET PO PRN ×4 (04:30→21:06)
[2017-02-14] MEDS: NS + 20MEQ KCL 1,000 ML IV SCH (04:31)
[2017-02-14 05:43] LABS: BLOOD UREA NITROGEN 5 mg/dL (7-18)
[2017-02-14 06:33] VITALS: BP 109/71
[2017-02-14] MEDS: [UNRECOGNIZED DRUG - OTHER] PO SCH ×2 (08:00→17:00)
[2017-02-14] MEDS: PANTOPRAZOLE 40 MG IV IVPush SCH (09:07)
[2017-02-14] MEDS: POTASSIUM CHLORIDE 20 MEQ TAB.ER.PRT PO SCH ×2 (09:08→17:33)
[2017-02-14] MEDS: LACTOBACILLUS CHEW TABLET PO SCH (09:08)
[2017-02-14] MEDS: FLUTICASONE/VILANTEROL 100-25MCG/INH INH SCH ×2 (09:08→11:30)
[2017-02-14] MEDS: DRONABINOL 5 MG CAPSULE PO SCH (09:09)
[2017-02-14] MEDS: LACTULOSE 10 GM/15 ML UDC PO SCH ×2 (09:09→21:06)
[2017-02-14] MEDS: SENNA/DOCUSATE TABLET PO SCH (09:09)
[2017-02-14] MEDS: MIRTAZAPINE 15 MG TABLET PO SCH (09:09)
[2017-02-14 13:53] VITALS: BP 130/84
[2017-02-14 21:30] VITALS: BP 127/88
[2017-02-14 23:06] LABS: ABSOLUTE CD 4 HELPER 315 /uL (359-1519); HEMATOCRIT 36.8 % (37.5-51.0); HEMOGLOBIN 12.1 g/dL (12.6-17.7); IMMATURE GRANS (ABSOLUTE) 0.1 x10E3/uL (0.0-0.1); IMMATURE GRANULOCYTES 1 % (.); MCH 29.4 pg (26.6-33.0); MCHC 32.9 g/dL (31.5-35.7); MCV 90 fL (79-97); MONOCYTES 9 % (.); NEUTROPHILS 74 % (.); PLATELETS 408 x10E3/uL (150-379); RBC 4.11 x10E6/uL (4.14-5.80); RDW 15.5 % (12.3-15.4); WBC 9.3 x10E3/uL (3.4-10.8)
[2017-02-15 03:01] VITALS: BP 108/72
[2017-02-15] MEDS: NS + 20MEQ KCL 1,000 ML IV SCH (03:29)
[2017-02-15] MEDS: OXYcodone IR 5MG TABLET PO PRN ×5 (03:43→22:51)
[2017-02-15 04:44] LABS: BLOOD UREA NITROGEN 3 mg/dL (7-18)
[2017-02-15] MEDS: ENOXAPARIN 40 MG/0.4 ML SQ SCH (07:30)
[2017-02-15] MEDS: PANTOPRAZOLE 40 MG IV IVPush SCH (07:30)
[2017-02-15] MEDS: [UNRECOGNIZED DRUG - OTHER] PO SCH ×2 (08:00→17:00)
[2017-02-15] MEDS: POTASSIUM CHLORIDE 20 MEQ TAB.ER.PRT PO SCH (08:22)
[2017-02-15] MEDS: DRONABINOL 5 MG CAPSULE PO SCH (08:22)
[2017-02-15] MEDS: MIRTAZAPINE 15 MG TABLET PO SCH (08:22)
[2017-02-15] MEDS: SENNA/DOCUSATE TABLET PO SCH (08:22)
[2017-02-15] MEDS: LACTULOSE 10 GM/15 ML UDC PO SCH ×2 (08:22→21:19)
[2017-02-15] MEDS: LACTOBACILLUS CHEW TABLET PO SCH (08:22)
[2017-02-15] MEDS: FLUTICASONE/VILANTEROL 100-25MCG/INH INH SCH (08:22)
[2017-02-15] MEDS: ONDANSETRON 2MG/ML, 2ML IVPush PRN (08:37)
[2017-02-15 09:03] VITALS: BP 121/83
[2017-02-15 11:42] VITALS: BP 125/87
[2017-02-15] MEDS ORDERED: METOPROLOL TARTRATE 25 MG TABLET PO ONE (13:00)
[2017-02-15 16:11] VITALS: BP 134/88
[2017-02-15 17:13] VITALS: BP 147/96
[2017-02-15] MEDS: METOPROLOL TARTRATE 25 MG TABLET PO SCH (17:14)
[2017-02-15] MEDS: POLYETHYLENE GLYCOL 17 GM PACKET PO PRN (17:15)
[2017-02-15] MEDS ORDERED: ONDANSETRON 4 MG TABLET PO PRN (19:30)
[2017-02-15] MEDS ORDERED: BISACODYL 10 MG SUPP PR PRN (19:30)
[2017-02-15] MEDS ORDERED: ALBUTEROL/IPRATROPIUM 2.5MG/0.5MG, 3 ML NPPB PRN (19:30)
[2017-02-15 21:27] VITALS: BP 140/85
[2017-02-16 02:28] VITALS: BP 137/83
[2017-02-16 06:13] LABS: ASPARTATE AMINO TRANSFERASE 16 U/L (15-37); BLOOD UREA NITROGEN 3 mg/dL (7-18)
[2017-02-16] MEDS: METOPROLOL TARTRATE 25 MG TABLET PO SCH ×2 (06:38→17:50)
[2017-02-16] MEDS: OXYcodone IR 5MG TABLET PO PRN ×4 (07:18→20:07)
[2017-02-16 08:00] VITALS: BP 122/81
[2017-02-16] MEDS: ONDANSETRON 2MG/ML, 2ML IVPush PRN (08:54)
[2017-02-16] MEDS: DRONABINOL 5 MG CAPSULE PO SCH (09:46)
[2017-02-16] MEDS: LACTULOSE 10 GM/15 ML UDC PO SCH ×2 (09:46→20:07)
[2017-02-16] MEDS: SENNA/DOCUSATE TABLET PO SCH (09:46)
[2017-02-16] MEDS: MIRTAZAPINE 15 MG TABLET PO SCH (09:46)
[2017-02-16] MEDS: FLUTICASONE/VILANTEROL 100-25MCG/INH INH SCH (09:46)
[2017-02-16] MEDS: LACTOBACILLUS CHEW TABLET PO SCH (09:46)
[2017-02-16] MEDS: ENOXAPARIN 40 MG/0.4 ML SQ SCH (09:47)
[2017-02-16] MEDS: [UNRECOGNIZED DRUG - OTHER] PO SCH ×2 (09:49→17:50)
[2017-02-16 14:00] VITALS: BP 117/80
[2017-02-16 20:59] VITALS: BP 130/85
[2017-02-16] MEDS: TEMAZEPAM 15 MG CAPSULE PO PRN (23:17)
[2017-02-17 02:50] VITALS: BP 122/75
[2017-02-17] MEDS: METOPROLOL TARTRATE 25 MG TABLET PO SCH ×2 (05:34→17:58)
[2017-02-17 06:22] LABS: BLOOD UREA NITROGEN 3 mg/dL (7-18)
[2017-02-17 06:26] LABS: ASPARTATE AMINO TRANSFERASE 9 U/L (15-37)
[2017-02-17 08:00] VITALS: BP 109/71
[2017-02-17] MEDS: [UNRECOGNIZED DRUG - OTHER] PO SCH ×2 (08:00→16:50)
[2017-02-17] MEDS: FLUTICASONE/VILANTEROL 100-25MCG/INH INH SCH (09:00)
[2017-02-17] MEDS: ENOXAPARIN 40 MG/0.4 ML SQ SCH (09:06)
[2017-02-17] MEDS: MIRTAZAPINE 15 MG TABLET PO SCH (09:08)
[2017-02-17] MEDS: LACTOBACILLUS CHEW TABLET PO SCH (09:08)
[2017-02-17] MEDS: SENNA/DOCUSATE TABLET PO SCH (09:08)
[2017-02-17] MEDS: LACTULOSE 10 GM/15 ML UDC PO SCH ×2 (09:08→20:40)
[2017-02-17] MEDS: DRONABINOL 5 MG CAPSULE PO SCH (09:20)
[2017-02-17] MEDS: OXYcodone IR 5MG TABLET PO PRN ×4 (09:21→23:24)
[2017-02-17 12:03] VITALS: BP 119/81
[2017-02-17] MEDS ORDERED: POTASSIUM CHLORIDE 20 MEQ TAB.ER.PRT PO ONE (16:30)
[2017-02-17] MEDS: ONDANSETRON 2MG/ML, 2ML IVPush PRN (19:20)
[2017-02-17 19:38] VITALS: BP 130/79
[2017-02-17] MEDS: TEMAZEPAM 15 MG CAPSULE PO PRN (23:24)
[2017-02-18 01:13] VITALS: BP 126/81
[2017-02-18] MEDS: METOPROLOL TARTRATE 25 MG TABLET PO SCH ×2 (05:54→16:32)
[2017-02-18] MEDS ORDERED: BUPIVACAINE/PF-EPI 0.5% 1:200K ONE (07:00)
[2017-02-18] MEDS: ENOXAPARIN 40 MG/0.4 ML SQ SCH (07:28)
[2017-02-18 07:30] VITALS: BP 116/77
[2017-02-18] MEDS: [UNRECOGNIZED DRUG - OTHER] PO SCH ×2 (08:00→17:31)
[2017-02-18] MEDS: FLUTICASONE/VILANTEROL 100-25MCG/INH INH SCH (08:56)
[2017-02-18] MEDS: LACTULOSE 10 GM/15 ML UDC PO SCH ×2 (09:00→20:42)
[2017-02-18] MEDS: SENNA/DOCUSATE TABLET PO SCH (09:00)
[2017-02-18] MEDS: LACTOBACILLUS CHEW TABLET PO SCH (09:00)
[2017-02-18] MEDS: MIRTAZAPINE 15 MG TABLET PO SCH (09:00)
[2017-02-18] MEDS: DRONABINOL 5 MG CAPSULE PO SCH (09:00)
[2017-02-18] MEDS ORDERED: MIDAZOLAM 1 MG/ML, 2ML ONE (11:45)
[2017-02-18] MEDS ORDERED: FENTANYL PF 250 MCG/5ML ONE (11:46)
[2017-02-18] MEDS ORDERED: PROPOFOL 10 MG/ML, 20ML ONE (11:47)
[2017-02-18] MEDS ORDERED: CEFAZOLIN 1,000 MG ONE (11:47)
[2017-02-18] MEDS ORDERED: ROCURONIUM 10 MG/ML ONE (11:47)
[2017-02-18] MEDS ORDERED: SUCCINYLCHOLINE 20 MG/ML, 10ML ONE (11:47)
[2017-02-18] MEDS ORDERED: PHENYLEPHRINE 10 MG/ML ONE (11:47)
[2017-02-18] MEDS ORDERED: EPHEDRINE 50 MG/ML, 1ML ONE (11:47)
[2017-02-18] MEDS ORDERED: SUGAMMADEX 200 MG/2 ML IVPush ONE (12:20)
[2017-02-18] MEDS ORDERED: OXYcodone 5 MG/5 ML ORAL.SOL UDC PO PRN (12:30)
[2017-02-18] MEDS ORDERED: ONDANSETRON 2MG/ML, 2ML IVPush PRN (12:30)
[2017-02-18] MEDS ORDERED: METOCLOPRAMIDE 5 MG/ML, 2ML IV PRN (12:30)
[2017-02-18] MEDS ORDERED: hydrALAzine 20 MG/ML, 1ML IV PRN (12:30)
[2017-02-18] MEDS ORDERED: ACETAMINOPHEN 325 MG TABLET PO PRN (12:30)
[2017-02-18] MEDS ORDERED: FENTANYL PF 100 MCG/2ML IV PRN (12:30)
[2017-02-18] MEDS ORDERED: LABETALOL 5MG/ML, 20ML IV PRN (12:30)
[2017-02-18] MEDS ORDERED: OXYcodone 5 MG/5 ML ORAL.SOL UDC ONE (13:21)
[2017-02-18] MEDS ORDERED: HYDROmorphone 1 MG/ML, 1ML ONE (13:24)
[2017-02-18] MEDS: HYDROmorphone 1 MG/ML, 1ML IV PRN ×2 (13:25→13:39)
[2017-02-18 14:25] VITALS: BP 92/57
[2017-02-18] MEDS: OXYcodone IR 5MG TABLET PO PRN ×2 (17:31→21:50)
[2017-02-18 19:36] VITALS: BP 107/76
[2017-02-19 00:07] VITALS: BP 104/64
[2017-02-19] MEDS: OXYcodone IR 5MG TABLET PO PRN ×5 (03:10→20:16)
[2017-02-19 04:07] VITALS: BP 104/59
[2017-02-19] MEDS: METOPROLOL TARTRATE 25 MG TABLET PO SCH ×2 (04:08→17:23)
[2017-02-19 07:55] VITALS: BP 105/69
[2017-02-19] MEDS: LACTOBACILLUS CHEW TABLET PO SCH (08:14)
[2017-02-19] MEDS: FLUTICASONE/VILANTEROL 100-25MCG/INH INH SCH (08:14)
[2017-02-19] MEDS: SENNA/DOCUSATE TABLET PO SCH (08:15)
[2017-02-19] MEDS: MIRTAZAPINE 15 MG TABLET PO SCH (08:15)
[2017-02-19] MEDS: LACTULOSE 10 GM/15 ML UDC PO SCH ×2 (08:15→20:16)
[2017-02-19] MEDS: ONDANSETRON 2MG/ML, 2ML IVPush PRN (08:22)
[2017-02-19] MEDS: ENOXAPARIN 40 MG/0.4 ML SQ SCH (08:26)
[2017-02-19] MEDS: DRONABINOL 5 MG CAPSULE PO SCH (09:08)
[2017-02-19 12:39] VITALS: BP 111/81
[2017-02-19] MEDS ORDERED: CALCIUM CARBONATE 500 MG TAB.CHEW PO PRN (15:30)
[2017-02-19] MEDS: SIMETHICONE 80 MG CHEW TAB PO SCH ×2 (16:11→20:16)
[2017-02-19] MEDS: [UNRECOGNIZED DRUG - OTHER] PO SCH ×2 (16:59→17:00)
[2017-02-19] MEDS: FAMOTIDINE 20 MG TABLET PO SCH (20:16)
[2017-02-19 20:27] VITALS: BP 110/75
[2017-02-20 03:14] VITALS: BP 95/60
[2017-02-20] MEDS: OXYcodone IR 5MG TABLET PO PRN ×4 (04:16→16:27)
[2017-02-20] MEDS: METOPROLOL TARTRATE 25 MG TABLET PO SCH ×2 (06:33→18:00)
[2017-02-20] MEDS: SIMETHICONE 80 MG CHEW TAB PO SCH ×4 (06:33→20:01)
[2017-02-20 06:49] VITALS: BP 115/68
[2017-02-20] MEDS: DRONABINOL 5 MG CAPSULE PO SCH (08:30)
[2017-02-20] MEDS: SENNA/DOCUSATE TABLET PO SCH (08:30)
[2017-02-20] MEDS: LACTULOSE 10 GM/15 ML UDC PO SCH ×2 (08:31→20:01)
[2017-02-20] MEDS: FLUTICASONE/VILANTEROL 100-25MCG/INH INH SCH (08:31)
[2017-02-20] MEDS: LACTOBACILLUS CHEW TABLET PO SCH (08:31)
[2017-02-20] MEDS: ENOXAPARIN 40 MG/0.4 ML SQ SCH (08:31)
[2017-02-20] MEDS: MIRTAZAPINE 15 MG TABLET PO SCH (08:31)
[2017-02-20 15:40] VITALS: BP 111/62
[2017-02-20] MEDS: [UNRECOGNIZED DRUG - OTHER] PO SCH ×2 (16:59→17:00)
[2017-02-20] MEDS ORDERED: ALBUTEROL/IPRATROPIUM 2.5MG/0.5MG, 3 ML NPPB PRN (17:00)
[2017-02-20] MEDS: MORPHINE SULFATE 4 MG/ML, 1ML IVPush PRN ×3 (17:59→22:43)
[2017-02-20 19:57] VITALS: BP 111/68
[2017-02-20] MEDS: ALBUTEROL/IPRATROPIUM 2.5MG/0.5MG, 3 ML NPPB SCH (20:00)
[2017-02-20] MEDS: FAMOTIDINE 20 MG TABLET PO SCH (20:01)
[2017-02-21] MEDS: ONDANSETRON 2MG/ML, 2ML IVPush PRN ×2 (00:49→18:53)
[2017-02-21 01:28] VITALS: BP 106/70
[2017-02-21] MEDS: OXYcodone IR 5MG TABLET PO PRN ×5 (04:44→22:31)
[2017-02-21 05:08] LABS: BLOOD UREA NITROGEN 5 mg/dL (7-18)
[2017-02-21 06:05] VITALS: BP 105/67
[2017-02-21] MEDS: METOPROLOL TARTRATE 25 MG TABLET PO SCH ×2 (06:07→16:58)
[2017-02-21] MEDS: SIMETHICONE 80 MG CHEW TAB PO SCH ×4 (06:07→20:46)
[2017-02-21] MEDS ORDERED: SODIUM BICARBONATE 4.2%, 5ML NPPB SCH (07:00)
[2017-02-21] MEDS: ALBUTEROL/IPRATROPIUM 2.5MG/0.5MG, 3 ML NPPB SCH ×4 (07:00→19:40)
[2017-02-21 07:49] VITALS: BP 107/75
[2017-02-21] MEDS: ENOXAPARIN 40 MG/0.4 ML SQ SCH (07:53)
[2017-02-21] MEDS: LACTOBACILLUS CHEW TABLET PO SCH (07:54)
[2017-02-21] MEDS: FLUTICASONE/VILANTEROL 100-25MCG/INH INH SCH (07:54)
[2017-02-21] MEDS: LACTULOSE 10 GM/15 ML UDC PO SCH ×2 (07:54→20:48)
[2017-02-21] MEDS: MIRTAZAPINE 15 MG TABLET PO SCH (07:54)
[2017-02-21] MEDS: SENNA/DOCUSATE TABLET PO SCH (07:55)
[2017-02-21] MEDS: DRONABINOL 5 MG CAPSULE PO SCH (07:59)
[2017-02-21 12:55] VITALS: BP 126/84
[2017-02-21] MEDS: [UNRECOGNIZED DRUG - OTHER] PO SCH ×2 (16:58→16:59)
[2017-02-21 19:02] VITALS: BP 116/82
[2017-02-21] MEDS: FAMOTIDINE 20 MG TABLET PO SCH (20:48)
[2017-02-21] MEDS: TEMAZEPAM 15 MG CAPSULE PO PRN (23:41)
[2017-02-22 02:03] VITALS: BP 107/66
[2017-02-22] MEDS ORDERED: D5%-0.9% NACL 1,000 ML IV SCH (03:30)
[2017-02-22] MEDS: MORPHINE SULFATE 4 MG/ML, 1ML IVPush PRN ×2 (04:22→08:08)
[2017-02-22 06:45] VITALS: BP 104/72
[2017-02-22] MEDS: ALBUTEROL/IPRATROPIUM 2.5MG/0.5MG, 3 ML NPPB SCH ×4 (07:36→21:00)
[2017-02-22] MEDS: [UNRECOGNIZED DRUG - OTHER] PO SCH ×2 (08:00→17:00)
[2017-02-22] MEDS: METOPROLOL TARTRATE 25 MG TABLET PO SCH ×2 (08:08→18:07)
[2017-02-22] MEDS: FLUTICASONE/VILANTEROL 100-25MCG/INH INH SCH (09:00)
[2017-02-22] MEDS: LACTULOSE 10 GM/15 ML UDC PO SCH ×2 (09:00→20:50)
[2017-02-22] MEDS: MIRTAZAPINE 15 MG TABLET PO SCH (09:06)
[2017-02-22] MEDS: DRONABINOL 5 MG CAPSULE PO SCH (09:06)
[2017-02-22] MEDS: SIMETHICONE 80 MG CHEW TAB PO SCH ×4 (09:06→20:54)
[2017-02-22] MEDS: LACTOBACILLUS CHEW TABLET PO SCH (09:06)
[2017-02-22] MEDS: SENNA/DOCUSATE TABLET PO SCH (09:07)
[2017-02-22] MEDS: ENOXAPARIN 40 MG/0.4 ML SQ SCH (09:08)
[2017-02-22] MEDS: OXYcodone IR 5MG TABLET PO PRN ×4 (10:34→23:01)
[2017-02-22 13:43] VITALS: BP 108/73
[2017-02-22] MEDS: POLYETHYLENE GLYCOL 17 GM PACKET PO PRN (17:20)
[2017-02-22 18:05] VITALS: BP 107/69
[2017-02-22 18:40] VITALS: BP 126/74
[2017-02-22] MEDS: FAMOTIDINE 20 MG TABLET PO SCH (20:54)
[2017-02-22] MEDS: ONDANSETRON 2MG/ML, 2ML IVPush PRN (23:01)
[2017-02-23 02:16] VITALS: BP 182/65
[2017-02-23] MEDS: MORPHINE SULFATE 4 MG/ML, 1ML IVPush PRN ×3 (03:30→21:15)
[2017-02-23 06:05] LABS: ASPARTATE AMINO TRANSFERASE 15 U/L (15-37); BLOOD UREA NITROGEN 7 mg/dL (7-18)
[2017-02-23 06:14] LABS: C-REACTIVE PROTEIN, QUANT > 19.00 mg/dL (0.02-0.49)
[2017-02-23] MEDS: SIMETHICONE 80 MG CHEW TAB PO SCH ×4 (06:14→21:16)
[2017-02-23] MEDS: ALBUTEROL/IPRATROPIUM 2.5MG/0.5MG, 3 ML NPPB SCH ×3 (06:16→21:05)
[2017-02-23] MEDS: METOPROLOL TARTRATE 25 MG TABLET PO SCH ×2 (06:28→18:28)
[2017-02-23 06:45] VITALS: BP 105/70
[2017-02-23] MEDS ORDERED: POTASSIUM CHLORIDE 40 MEQ in SODIUM CHLORIDE 0.9% 500 ML IV ONE (07:30)
[2017-02-23] MEDS: ENOXAPARIN 40 MG/0.4 ML SQ SCH (07:30)
[2017-02-23] MEDS: [UNRECOGNIZED DRUG - OTHER] PO SCH (08:00)
[2017-02-23] MEDS: LACTULOSE 10 GM/15 ML UDC PO SCH ×2 (09:00→21:00)
[2017-02-23] MEDS: MIRTAZAPINE 15 MG TABLET PO SCH (09:00)
[2017-02-23] MEDS: LACTOBACILLUS CHEW TABLET PO SCH (09:00)
[2017-02-23] MEDS: DRONABINOL 5 MG CAPSULE PO SCH (09:00)
[2017-02-23] MEDS: FLUTICASONE/VILANTEROL 100-25MCG/INH INH SCH (09:00)
[2017-02-23] MEDS: SENNA/DOCUSATE TABLET PO SCH (09:00)
[2017-02-23] MEDS ORDERED: FENTANYL PF 100 MCG/2ML ONE (09:43)
[2017-02-23] MEDS ORDERED: MIDAZOLAM 1 MG/ML, 5ML ONE (09:44)
[2017-02-23 12:09] VITALS: BP 94/58
[2017-02-23] MEDS: OXYcodone IR 5MG TABLET PO PRN ×2 (14:15→18:28)
[2017-02-23] MEDS: POTASSIUM CHLORIDE 40 MEQ in SODIUM CHLORIDE 0.9% 500 ML IV ONE ×2 (15:18→20:00)
[2017-02-23] MEDS: [UNRECOGNIZED DRUG - OTHER] PO SCH (17:00)
[2017-02-23 18:25] VITALS: BP 96/58
[2017-02-23 20:03] VITALS: BP 110/65
[2017-02-23] MEDS ORDERED: ACETAMINOPHEN 325 MG TABLET PO ONE (20:30)
[2017-02-23] MEDS: FAMOTIDINE 20 MG TABLET PO SCH (21:15)
[2017-02-24 00:42] VITALS: BP 119/75
[2017-02-24] MEDS: POLYETHYLENE GLYCOL 17 GM PACKET PO PRN (04:16)
[2017-02-24] MEDS: OXYcodone IR 5MG TABLET PO PRN ×5 (04:16→22:40)
[2017-02-24] MEDS: MORPHINE SULFATE 4 MG/ML, 1ML IVPush PRN ×4 (04:38→17:58)
[2017-02-24] MEDS: SIMETHICONE 80 MG CHEW TAB PO SCH ×4 (06:33→20:49)
[2017-02-24] MEDS: METOPROLOL TARTRATE 25 MG TABLET PO SCH ×2 (06:33→18:19)
[2017-02-24] MEDS: ALBUTEROL/IPRATROPIUM 2.5MG/0.5MG, 3 ML NPPB SCH ×4 (07:00→19:52)
[2017-02-24 08:25] VITALS: BP 107/73
[2017-02-24] MEDS: [UNRECOGNIZED DRUG - OTHER] PO SCH ×3 (08:30→18:19)
[2017-02-24] MEDS: FLUTICASONE/VILANTEROL 100-25MCG/INH INH SCH (08:30)
[2017-02-24] MEDS: ENOXAPARIN 40 MG/0.4 ML SQ SCH (08:30)
[2017-02-24] MEDS: DRONABINOL 5 MG CAPSULE PO SCH (08:31)
[2017-02-24] MEDS: SENNA/DOCUSATE TABLET PO SCH (08:35)
[2017-02-24] MEDS: MIRTAZAPINE 15 MG TABLET PO SCH (08:35)
[2017-02-24] MEDS: LACTOBACILLUS CHEW TABLET PO SCH (08:35)
[2017-02-24] MEDS: LACTULOSE 10 GM/15 ML UDC PO SCH ×2 (08:36→20:50)
[2017-02-24] MEDS ORDERED: GADOBUTROL 7.5 MMOL/7.5 ML PFS ONE (12:55)
[2017-02-24] MEDS ORDERED: LORazepam 1MG TABLET ONE (14:30)
[2017-02-24] MEDS: LORazepam 0.5MG TABLET PO PRN (14:32)
[2017-02-24] MEDS ORDERED: ACETAMINOPHEN 325 MG TABLET PO ONE (18:30)
[2017-02-24 19:12] VITALS: BP 123/82
[2017-02-24] MEDS ORDERED: LORazepam 1MG TABLET PO ONE (19:30)
[2017-02-24] MEDS: FAMOTIDINE 20 MG TABLET PO SCH (20:49)
[2017-02-25 01:20] VITALS: BP 121/77
[2017-02-25] MEDS ORDERED: LORazepam 1MG TABLET ONE ×2 (03:09→09:16)
[2017-02-25] MEDS: LORazepam 0.5MG TABLET PO PRN ×2 (03:11→09:19)
[2017-02-25] MEDS: OXYcodone IR 5MG TABLET PO PRN ×4 (03:11→18:21)
[2017-02-25] MEDS: METOPROLOL TARTRATE 25 MG TABLET PO SCH ×2 (06:06→18:19)
[2017-02-25] MEDS: ALBUTEROL/IPRATROPIUM 2.5MG/0.5MG, 3 ML NPPB SCH ×4 (07:00→19:29)
[2017-02-25 07:14] VITALS: BP 122/78
[2017-02-25] MEDS: ENOXAPARIN 40 MG/0.4 ML SQ SCH (07:34)
[2017-02-25] MEDS: SIMETHICONE 80 MG CHEW TAB PO SCH ×4 (07:34→20:42)
[2017-02-25] MEDS: LACTULOSE 10 GM/15 ML UDC PO SCH ×2 (09:00→21:00)
[2017-02-25] MEDS: FLUTICASONE/VILANTEROL 100-25MCG/INH INH SCH (09:20)
[2017-02-25] MEDS: DRONABINOL 5 MG CAPSULE PO SCH (09:20)
[2017-02-25] MEDS: LACTOBACILLUS CHEW TABLET PO SCH (09:20)
[2017-02-25] MEDS: MIRTAZAPINE 15 MG TABLET PO SCH (09:20)
[2017-02-25] MEDS: SENNA/DOCUSATE TABLET PO SCH (09:20)
[2017-02-25] MEDS ORDERED: FUROSEMIDE 20 MG/2 ML IV ONE ×2 (09:30→16:30)
[2017-02-25] MEDS: MORPHINE SULFATE 4 MG/ML, 1ML IVPush PRN (10:36)
[2017-02-25 13:53] VITALS: BP 118/82
[2017-02-25] MEDS ORDERED: ACETAMINOPHEN 325 MG TABLET PO PRN ×2 (15:00)
[2017-02-25] MEDS ORDERED: FUROSEMIDE 20 MG/2 ML ONE (16:17)
[2017-02-25] MEDS ORDERED: POTASSIUM CHLORIDE 20 MEQ TAB.ER.PRT PO ONE (16:30)
[2017-02-25] MEDS ORDERED: MORPHINE SULFATE 4 MG/ML, 1ML IVPush SCH (16:30)
[2017-02-25] MEDS: [UNRECOGNIZED DRUG - OTHER] PO SCH (16:31)
[2017-02-25 16:53] LABS: BLOOD UREA NITROGEN 4 mg/dL (7-18)
[2017-02-25] MEDS ORDERED: POTASSIUM CHLORIDE 10% 40 MEQ/30 ML UDC PO ONE (17:00)
[2017-02-25] MEDS ORDERED: morphine SULFATE 10 MG/ML, 1ML IVPush PRN (17:00)
[2017-02-25] MEDS ORDERED: FLUCONAZOLE 100 MG TABLET PO ONE (18:00)
[2017-02-25] MEDS ORDERED: NYSTATIN 500,000 UNITS/5 ML UDC PO SCH (18:00)
[2017-02-25] MEDS ORDERED: morphine SULFATE ORAL.CONC 20 MG/ML PO PRN (18:00)
[2017-02-25 19:37] VITALS: BP 114/72
[2017-02-25] MEDS: NYSTATIN 500,000 UNITS/5 ML UDC PO SCH (20:42)
[2017-02-25] MEDS: POTASSIUM CHLORIDE 10% 20 MEQ/15 ML UDC PO SCH ×2 (20:42→21:00)
[2017-02-25] MEDS: FAMOTIDINE 20 MG TABLET PO SCH (21:00)
[2017-02-26 02:14] VITALS: BP 93/51
[2017-02-26 05:45] LABS: BLOOD UREA NITROGEN 6 mg/dL (7-18)
[2017-02-26] MEDS: NYSTATIN 500,000 UNITS/5 ML UDC PO SCH ×4 (05:56→21:59)
[2017-02-26] MEDS: SIMETHICONE 80 MG CHEW TAB PO SCH ×4 (05:57→22:04)
[2017-02-26] MEDS: METOPROLOL TARTRATE 25 MG TABLET PO SCH ×2 (05:57→18:15)
[2017-02-26] MEDS: ALBUTEROL/IPRATROPIUM 2.5MG/0.5MG, 3 ML NPPB SCH ×4 (06:30→18:34)
[2017-02-26 06:59] VITALS: BP 117/78
[2017-02-26] MEDS: LACTULOSE 10 GM/15 ML UDC PO SCH ×2 (09:00→21:58)
[2017-02-26] MEDS: [UNRECOGNIZED DRUG - OTHER] PO SCH (09:00)
[2017-02-26] MEDS: FLUTICASONE/VILANTEROL 100-25MCG/INH INH SCH (09:35)
[2017-02-26] MEDS: ENOXAPARIN 40 MG/0.4 ML SQ SCH (09:35)
[2017-02-26] MEDS: SENNA/DOCUSATE TABLET PO SCH (09:36)
[2017-02-26] MEDS: MIRTAZAPINE 15 MG TABLET PO SCH ×2 (09:37→10:43)
[2017-02-26] MEDS: LACTOBACILLUS CHEW TABLET PO SCH ×2 (09:37→10:43)
[2017-02-26] MEDS: DRONABINOL 5 MG CAPSULE PO SCH (09:38)
[2017-02-26] MEDS: POTASSIUM CHLORIDE 10% 20 MEQ/15 ML UDC PO SCH ×2 (09:38→21:58)
[2017-02-26] MEDS ORDERED: DEXAMETHASONE 4 MG TABLET PO ONE (12:00)
[2017-02-26] MEDS ORDERED: MORPHINE SULFATE 4 MG/ML, 1ML IVPush PRN (12:00)
[2017-02-26 13:52] VITALS: BP 111/76
[2017-02-26] MEDS: morphine SULFATE ORAL.CONC 20 MG/ML BC PRN ×4 (16:17→21:58)
[2017-02-26] MEDS: LORazepam INTENSOL 2 MG/ML PO PRN (16:46)
[2017-02-26 20:58] VITALS: BP 124/75
[2017-02-26] MEDS: FAMOTIDINE 20 MG TABLET PO SCH (21:59)
[2017-02-27] MEDS: LORazepam INTENSOL 2 MG/ML PO PRN ×4 (00:31→08:47)
[2017-02-27 02:17] VITALS: BP 122/79
[2017-02-27] MEDS: morphine SULFATE ORAL.CONC 20 MG/ML BC PRN ×3 (03:11→06:17)
[2017-02-27] MEDS: SIMETHICONE 80 MG CHEW TAB PO SCH ×2 (06:16→12:33)
[2017-02-27] MEDS: METOPROLOL TARTRATE 25 MG TABLET PO SCH (06:17)
[2017-02-27 06:35] VITALS: BP 129/79
[2017-02-27] MEDS: NYSTATIN 500,000 UNITS/5 ML UDC PO SCH ×2 (06:35→12:33)
[2017-02-27] MEDS: ALBUTEROL/IPRATROPIUM 2.5MG/0.5MG, 3 ML NPPB SCH ×2 (06:54→10:50)
[2017-02-27] MEDS ORDERED: DEXAMETHASONE 4 MG TABLET PO SCH (07:30)
[2017-02-27] MEDS: ENOXAPARIN 40 MG/0.4 ML SQ SCH (07:30)
[2017-02-27] MEDS: [UNRECOGNIZED DRUG - OTHER] PO SCH (08:33)
[2017-02-27] MEDS: LACTULOSE 10 GM/15 ML UDC PO SCH (08:34)
[2017-02-27] MEDS: FLUTICASONE/VILANTEROL 100-25MCG/INH INH SCH (08:45)
[2017-02-27] MEDS: LACTOBACILLUS CHEW TABLET PO SCH (08:45)
[2017-02-27] MEDS: MIRTAZAPINE 15 MG TABLET PO SCH (08:46)
[2017-02-27] MEDS: SENNA/DOCUSATE TABLET PO SCH (08:46)
[2017-02-27] MEDS: POTASSIUM CHLORIDE 10% 20 MEQ/15 ML UDC PO SCH (08:46)
[2017-02-27] MEDS: DRONABINOL 5 MG CAPSULE PO SCH (08:49)
[2017-02-27 13:30] VITALS: BP 127/87
== END 2017-02-27 15:44 | disposition hospice, home (50) | DRG 163 ==
LOC: ED 16:51 → EDIP 18:12 → 3NE 20:15 → 4NOR 02-18 14:15
PROVIDERS: ADMIT Hospitalist; ATTEND Family Medicine
PROC: 0W9930Z Drainage of Right Pleural Cavity with Drainage Device, Percutaneous Approach (ICD-10-PCS; 2017-02-13)
PROC: 0BDN4ZZ Extraction of Right Pleura, Percutaneous Endoscopic Approach (ICD-10-PCS; principal; 2017-02-18 11:00)
PROC: 0B9C8ZX Drainage of Right Upper Lung Lobe, Via Natural or Artificial Opening Endoscopic, Diagnostic (ICD-10-PCS; 2017-02-23)
DX: C34.91 Malignant neoplasm of unspecified part of right bronchus or lung (principal); J18.9 Pneumonia, unspecified organism; J96.00 Acute respiratory failure, unspecified whether with hypoxia or hypercapnia; J86.9 Pyothorax without fistula; E43 Unspecified severe protein-calorie malnutrition; J90 Pleural effusion, not elsewhere classified; E87.1 Hypo-osmolality and hyponatremia; F11.20 Opioid dependence, uncomplicated; C79.51 Secondary malignant neoplasm of bone; J44.0 Chronic obstructive pulmonary disease with (acute) lower respiratory infection; J81.1 Chronic pulmonary edema; J98.11 Atelectasis; K59.00 Constipation, unspecified; Z66 Do not resuscitate; E86.0 Dehydration; I10 Essential (primary) hypertension; G89.29 Other chronic pain; K21.9 Gastro-esophageal reflux disease without esophagitis; D64.9 Anemia, unspecified; I27.2 Other secondary pulmonary hypertension; E87.6 Hypokalemia; D75.89 Other specified diseases of blood and blood-forming organs; R62.7 Adult failure to thrive; Z79.899 Other long term (current) drug therapy; Z87.891 Personal history of nicotine dependence; Z82.3 Family history of stroke; Z68.20 Body mass index [BMI] 20.0-20.9, adult
CPT/HCPCS: 31622; 31624; 32555; 36415; 70553; 71010; 71250; 71260; 74176; 78306; 80048; 80053; 82040; 82945; 83605; 83615; 83690; 83735; 83930; 83935; 83986; 84100; 84145; 84155; 84157; 84443; 85025; 85610; 85651; 86140; 86361; 86480; 87040; 87070; 87075; 87102; 87116; 87176; 87205; 87206; 87536; 88112; 88305; 88341; 88342; 89051; 93005; 93308; 93321; 93325; 94640; 96361; 96365; 99152; 99153; A9585; C1729; J0690; J1170; J1650; J2250; J2405; J2543; J2704; J3010; J3370; J3480; J3490; J7042; J7620; Q0167; Q9967; A9503; C9113; C9898; G0461; J0330; J1940; J2370; J3475; J7030; J7040